=== PATIENT | male | born 1990 | race Caucasian/White ===

== ENCOUNTER 2024-03-06 17:01 | Inpatient (IN) ==
[2024-03-06] MEDS: fentaNYL 100 mcg/2 ml 50 MCG/ML VIAL IV SLOW PU ONE ×2 (18:17→21:01)
[2024-03-06] MEDS: Morphine 4 MG/ML VIAL (1 ml) IV ONE (20:22)
[2024-03-06] MEDS ORDERED: Ondansetron 4 mg VIAL 2 MG/ML 2 ml VIAL IV PRN (23:25)
[2024-03-06] MEDS ORDERED: oxyCODONE/Acetamin 5/325 mg TAB PO PRN (23:25)
[2024-03-07] MEDS: NS 0.9% 1000 ml BAG 1,000 ML IV SCH (00:32)
[2024-03-07] MEDS: Morphine 10 MG/ML VIAL (1 ml) IV PRN (00:32)
[2024-03-07] MEDS ORDERED: Bupivacaine 0.25% SDV 30 ML ONE (03:24)
[2024-03-07] MEDS ORDERED: Propofol 10 MG/ML 20 ML BTL ONE (07:27)
[2024-03-07] MEDS ORDERED: Lidocaine 2% PF 5 ML VIAL ONE (07:27)
[2024-03-07] MEDS ORDERED: Midazolam 2 mg/2 ml VIAL 1 mg/ml 2 ml VIAL (2 mg) ONE (07:27)
[2024-03-07] MEDS ORDERED: Rocuronium 50 mg VIAL 10 mg/ml 5 ml VIAL (50 mg) ONE (07:27)
[2024-03-07] MEDS ORDERED: fentaNYL 100 mcg/2 ml 50 MCG/ML VIAL ONE (07:27)
[2024-03-07] MEDS ORDERED: HYDROmorphone 1 MG/1 ML SYRINGE IV PRN (08:08)
[2024-03-07] MEDS ORDERED: Ondansetron 4 mg VIAL 2 MG/ML 2 ml VIAL IV PRN ×2 (08:08→11:42)
[2024-03-07] MEDS ORDERED: Naloxone 0.4 mg VIAL 0.4 mg/ml 1 ml VIAL IV PRN (08:08)
[2024-03-07] MEDS ORDERED: fentaNYL 100 mcg/2 ml 50 MCG/ML VIAL IV PRN (08:08)
[2024-03-07] MEDS ORDERED: Dexamethasone IV 4 MG/ML VIAL 1 ml VIAL ONE ×2 (08:28→09:20)
[2024-03-07] MEDS ORDERED: ROPIVACAINE 5 MG/ML 30 ML BTL (0.5%) ONE (08:28)
[2024-03-07] MEDS ORDERED: ceFAZolin 2 GM PREMIX 2 GM/50 ML BAG ONE (08:38)
[2024-03-07] MEDS ORDERED: Acetaminophen IV 1 GM/100ML 1,000 MG/100 ML BAG IV ONE (09:25)
[2024-03-07] MEDS ORDERED: Ondansetron 4 mg VIAL 2 MG/ML 2 ml VIAL ONE (10:31)
[2024-03-07] MEDS ORDERED: Magnesium Hydroxide LIQ 30 ML UDC PO PRN (11:42)
[2024-03-07] MEDS ORDERED: Lactulose 30 ml UDC PO PRN (11:42)
[2024-03-07] MEDS ORDERED: Ondansetron ODT 4 mg TAB 4 MG TAB PO PRN (11:42)
[2024-03-07] MEDS ORDERED: Morphine 2 MG/ML SYRINGE IV PRN (11:42)
[2024-03-07] MEDS: Metoclopramide 5 MG/ML VIAL (10 mg) IV SLOW PU ONE (14:59)
[2024-03-07] MEDS: Lactated Ringers 1000 ml BAG 1,000 ML IV SCH (15:19)
[2024-03-07] MEDS: ceFAZolin 1 GM in Dextrose 1 GM/50 ML BAG IVPB SCH (16:50)
[2024-03-07] MEDS: Enoxaparin 40 MG/0.4 ML SYR SUBCUT ONE (17:18)
[2024-03-07] MEDS: Magnesium Hydroxide LIQ 30 ML UDC PO SCH (20:45)
[2024-03-08] MEDS: Vitamin THERAPEUTIC TAB PO SCH (09:26)
[2024-03-08 14:11] VITALS: BP 132/77
== END 2024-03-08 18:00 | disposition home or self-care (01) | DRG 494 ==
LOC: ED 17:01 → EDHOLD 23:25 → SSU 03-07 00:25
PROVIDERS: ADMIT Orthopaedic Surgery Hand Surgery; ATTEND Orthopaedic Surgery Hand Surgery